=== PATIENT | male | born 2000 | race Caucasian/White ===

== ENCOUNTER 2022-03-09 14:06 | Inpatient (IN) | payer MEDICAID, OTHER ==
[~2022-03-09] VITALS: Ht 152.4 cm; Wt 69.4 kg
[2022-03-09 15:49] LABS: BASOPHILS % 3.1 % (0.0-2.0); EOSINOPHILS % 2.3 % (0.0-5.0); HEMATOCRIT. 34.6 % (42.0-52.0); HEMOGLOBIN. 11.9 g/dL (14.0-18.0); LYMPHOCYTES % 15.1 % (20.0-50.0); MEAN CORPUSCULAR HEMOGLOBIN 34.3 pg (28.0-32.0); MEAN CORPUSCULAR VOLUME 99.6 fL (80.0-94.0); MEAN PLATELET VOLUME 7.6 fl (7.4-10.4); MONOCYTES % 7.8 % (2.0-8.0); NEUTROPHILS % 71.7 % (40.0-76.0); PLATELET 402 x1000/uL (130-400); RED BLOOD CELL COUNT 3.47 mill/uL (4.7-6.1); RED CELL DISTRIBUTION WIDTH 14.2 % (11.6-14.6)
[2022-03-09 15:58] LABS: CHLORIDE 105 mEq/L (98-107)
[2022-03-09 16:08] LABS: ETHANOL BLOOD < 10 mg/dL
[2022-03-09] MEDS ORDERED: ACETAMINOPHEN 325MG TABLET PO PRN ×2 (18:30)
[2022-03-09] MEDS ORDERED: IPRATROPIUM/ALBUTEROL 0.5-3(2.5)MG/3ML NEB HHN PRN (18:30)
[2022-03-09] MEDS ORDERED: MAGNESIUM/ALUMINUM HYDROXIDE/SIMETHICONE 30ML UDC PO PRN (18:30)
[2022-03-09] MEDS ORDERED: ONDANSETRON HCL 4MG/2ML INJ IV PRN (18:30)
[2022-03-09] MEDS ORDERED: CLONIDINE 0.1MG TABLET PO PRN (18:30)
[2022-03-09] MEDS ORDERED: HYDROCODONE/ACETAMINOPHEN 5/325MG TABLET PO PRN (18:30)
[2022-03-09] MEDS ORDERED: DOCUSATE SODIUM 100MG CAPSULE PO PRN (18:30)
[2022-03-09] MEDS ORDERED: GUAIFENESIN 200MG/10ML SUGAR FREE UDC PO PRN (18:30)
[2022-03-09] MEDS ORDERED: NALOXONE HCL 0.4MG/ML VIAL IV PRN (19:00)
[2022-03-09 19:53] LABS: HAPTOGLOBIN 149 mg/dL (30-200)
[2022-03-09 20:00] VITALS: BP_SYST 107; BP_DIAS 64; BP_DIAS 69
[2022-03-09 20:26] LABS: FERRITIN 646 ng/mL (22-322)
[2022-03-09 20:55] LABS: VITAMIN B12 SERUM 1988 pg/mL (211-911)
[2022-03-09] MEDS: FAMOTIDINE 20MG TABLET PO SCH (21:23)
[2022-03-09] MEDS: ENOXAPARIN 40MG/0.4ML SYR SUBCUT SCH (21:23)
[2022-03-10] VITALS: BP 106/70
[2022-03-10 04:00] VITALS: BP 114/80
[2022-03-10 07:36] LABS: FOLIC ACID (FOLATE) SERUM > 20.00 ng/mL (>5.38)
[2022-03-10 08:00] VITALS: BP 107/61
[2022-03-10] MEDS: FAMOTIDINE 20MG TABLET PO SCH (08:49)
[2022-03-10 09:46] LABS: BASOPHILS % 3.4 % (0.0-2.0); EOSINOPHILS % 4.2 % (0.0-5.0); HEMATOCRIT. 35.5 % (42.0-52.0); HEMOGLOBIN. 12.2 g/dL (14.0-18.0); LYMPHOCYTES % 19.9 % (20.0-50.0); MEAN CORPUSCULAR HEMOGLOBIN 34.1 pg (28.0-32.0); MEAN CORPUSCULAR VOLUME 99.2 fL (80.0-94.0); MEAN PLATELET VOLUME 8.5 fl (7.4-10.4); MONOCYTES % 10.9 % (2.0-8.0); NEUTROPHILS % 61.6 % (40.0-76.0); PLATELET 348 x1000/uL (130-400); RED BLOOD CELL COUNT 3.58 mill/uL (4.7-6.1); RED CELL DISTRIBUTION WIDTH 14.3 % (11.6-14.6)
[2022-03-10 10:14] LABS: CHLORIDE 107 mEq/L (98-107)
[2022-03-10 10:44] LABS: T4 FREE 1.11 ng/dL (0.76-1.46)
[2022-03-10 16:00] VITALS: BP 108/57
[2022-03-10] MEDS ORDERED: DIATR MEGLU/DIATRIZOATE SOLN 30ML PO SCH (18:00)
[2022-03-10] MEDS: PANTOPRAZOLE SODIUM 40 MG/VIAL IV SCH (18:28)
[2022-03-10] MEDS: DEXT 5%/0.9% NACL 1,000 ML IV SCH (18:38)
[2022-03-10 20:00] VITALS: BP 107/50
[2022-03-10] MEDS: ENOXAPARIN 40MG/0.4ML SYR SUBCUT SCH (20:25)
[2022-03-11] VITALS: BP 107/62
[2022-03-11 04:00] VITALS: BP 106/62
[2022-03-11 08:00] VITALS: BP 101/66
[2022-03-11] MEDS: PANTOPRAZOLE SODIUM 40 MG/VIAL IV SCH (08:00)
[2022-03-11 09:47] LABS: CHLORIDE 107 mEq/L (98-107)
[2022-03-11 09:52] LABS: EOSINOPHILS % 4.3 % (0.0-5.0); HEMATOCRIT. 36.7 % (42.0-52.0); HEMOGLOBIN. 12.5 g/dL (14.0-18.0); LYMPHOCYTES % 15.5 % (20.0-50.0); MEAN CORPUSCULAR HEMOGLOBIN 33.5 pg (28.0-32.0); MEAN CORPUSCULAR VOLUME 98.6 fL (80.0-94.0); MEAN PLATELET VOLUME 8.2 fl (7.4-10.4); NEUTROPHILS % 67.2 % (40.0-76.0); PLATELET 376 x1000/uL (130-400); RED BLOOD CELL COUNT 3.72 mill/uL (4.7-6.1); RED CELL DISTRIBUTION WIDTH 14.1 % (11.6-14.6)
[2022-03-11 12:00] VITALS: BP 100/56
[2022-03-11] MEDS ORDERED: LACTULOSE 20G/30ML UDC PO SCH (14:00)
[2022-03-11] MEDS: DEXT 5%/0.9% NACL 1,000 ML IV SCH (14:52)
[2022-03-11 16:00] VITALS: BP 101/50
[2022-03-11 17:27] VITALS: BP 148/64
[2022-03-12 09:07] LABS: HIV SCREEN 4G Non Reactive (Non Reactive)
[2022-03-12 15:06] LABS: ACTIN (SMOOTH MUSCLE) ANTIBODY 9 Units (0-19); MITOCHONDRIAL M2 AB <20.0 Units (0.0-20.0)
[2022-03-13 10:06] LABS: HBSAG SCREEN Negative (Negative)
== END 2022-03-11 22:32 | disposition home or self-care (01) | DRG 282 ==
LOC: ER 14:06 → 6EST 17:32 → EDBEDREQTM 17:34 → EDBEDREQ 17:34 → ENRESERV 18:27
PROVIDERS: ADMIT Hospitalist; ATTEND Hospitalist
DX: K86.1 Other chronic pancreatitis (principal); E44.1 Mild protein-calorie malnutrition; D69.6 Thrombocytopenia, unspecified; K76.0 Fatty (change of) liver, not elsewhere classified; D64.9 Anemia, unspecified; D75.839 Thrombocytosis, unspecified; R73.9 Hyperglycemia, unspecified; F17.200 Nicotine dependence, unspecified, uncomplicated; Z68.29 Body mass index [BMI] 29.0-29.9, adult; Z79.899 Other long term (current) drug therapy; Z82.49 Family history of ischemic heart disease and other diseases of the circulatory system; F10.90 Alcohol use, unspecified, uncomplicated
CPT/HCPCS: 36415; 71101; 73552; 76705; 80053; 80076; 80320; 82140; 82248; 82390; 82607; 82728; 82746; 82977; 83010; 83516; 83540; 83550; 83615; 84439; 84443; 84466; 85025; 85044; 86038; 86705; 86709; 86803; 87340; 87389; 99285; C1893; C9113; J1650; J7042; G0480